=== PATIENT | female | born 1995 | race Caucasian/White ===

== ENCOUNTER 2017-12-15 10:37 | Emergency (ER) | payer MEDICAID ==
[~2017-12-15] VITALS: Ht 157.5 cm; Wt 68.7 kg
[2017-12-15 10:47] VITALS: BP 143/86
--- NOTE | 2017-12-15 10:51 | NUR ---
PATIENT PRESENT TO ED W/ C/O VAGINAL BLEED STARTED YESTERDAY WITH DARK COLOR CLOTS W/ ABDOMINAL PAIN; WAS SEEN HERE YESTERDAY FOR THE SAME S/S DX W/ MISCARRIAGE. .DENIES ANY MEDICAL HX;SKIN IS PINK/WARM/DRY; AAOX4 WITH EVEN AND STEADY GAIT; LUNGS CLEAR BL; HR EVEN AND REGULAR; PT DENIES ANY FEVER, CP, SOB, OR COUGH AT THIS TIME; PATIENT STATES PAIN OF 7/10 AT THIS TIME;PATIENT POSITIONED FOR COMFORT; HOB ELEVATED; BEDRAILS UP X2; BED DOWN. ER MD MADE AWARE OF PT STATUS.
--- NOTE | 2017-12-15 10:58 | NUR ---
PT WAS SENT BACK TO THE LOBBY;PER ERMD ORDER.
[2017-12-15 11:12] LABS: BASOPHILS % (AUTO) 0.6 % (0.0-2.0); EOSINOPHILS # (AUTO) 0.1 K/uL (0-0.4); HEMATOCRIT 36.6 % (36-48); HEMOGLOBIN 12.1 g/dL (12.0-16.0); LYMPHOCYTES # (AUTO) 2.3 K/uL (2.5-16.5); LYMPHOCYTES % (AUTO) 29.3 % (20.5-51.1); MEAN CORPUSCULAR HEMOGLOBIN 28 pg (27-31); MEAN CORPUSCULAR HGB CONC 33 g/dL (33-37); MEAN CORPUSCULAR VOLUME 84.3 fL (80-94); MONOCYTES # (AUTO) 0.6 K/uL (0.8-1.0); MONOCYTES % (AUTO) 7.5 % (1.7-9.3); NEUTROPHILS # (AUTO) 4.9 K/uL (1.8-7.7); NEUTROPHILS % (AUTO) 61.6 % (42.2-75.2); PLATELET COUNT (AUTO) 218 K/uL (140-450); RED BLOOD CELL COUNT(AUTO) 4.34 MIL/uL (4.20-5.40); RED CELL DISTRIBUTION WIDTH 13.8 % (11.6-13.7); WHITE BLOOD COUNT (AUTO) 7.9 K/uL (4.5-11.0)
--- NOTE | 2017-12-15 11:50 | NUR ---
PT AMBULATED TO BED 11 FROM THE LOBBY.
[2017-12-15 12:21] VITALS: BP 108/51
--- NOTE | 2017-12-15 12:21 | NUR ---
Patient discharged with v/s stable. Written and verbal after care instructions given and explained. Patient alert, oriented and verbalized understanding of instructions. Ambulatory with steady gait. All questions addressed prior to discharge. ID band removed. Patient advised to follow up with PMD. Rx of MOTRIN AND CIPRO given. Patient educated on indication of medication including possible reaction and side effects. Opportunity to ask questions provided and answered.
[2017-12-15 12:30] LABS: APPEARANCE,URINE HAZY (CLEAR); BILIRUBIN,URINE NEGATIVE (NEGATIVE); BLOOD, URINE 3+ (NEGATIVE); COLOR,URINE RED (YELLOW); LEUKOCYTE ESTERASE ,URINE TRACE (NEGATIVE); NITRITE, URINE POSITIVE (NEGATIVE); UGLUCOSE NEGATIVE (NEGATIVE)
[2017-12-15 12:41] LABS: RBC,URINE >20 (MANY) /HPF (0-5); WBC,URINE 0-5 (RARE) /HPF (0-5)
[2017-12-15 12:42] LABS: CALCIUM OXALATE CRYSTALS,UR 0-10 /HPF (None Seen)
== END 2017-12-15 12:21 | disposition home or self-care (01) ==
LOC: MED 10:37
DX: O03.9 Complete or unspecified spontaneous abortion without complication (principal); N39.0 Urinary tract infection, site not specified
CPT/HCPCS: 36415; 81001; 81025; 84702; 85025; 87086; 99284

== ENCOUNTER 2019-10-23 19:56 | Emergency (ER) | payer OTHER ==
[~2019-10-23] VITALS: Ht 167.6 cm; Wt 79.8 kg
[2019-10-23 20:15] VITALS: BP 130/68
--- NOTE | 2019-10-23 20:15 | NUR ---
TO BED # 03 AMBULATORY
--- NOTE | 2019-10-23 20:20 | NUR ---
PT 24 Y/O FEMALE BIB SELF FOR C/O 06/03 ABD PAIN IN LUQ AND RUQ X 1 WEEK. PT STATES PAIN RAIDATES TO MID BACK. PT STATES SHE USUALLY FEELS PAIN AFTER EATING FOOD. " I THINK I HAVE A BAD DIET I EAT APICY FOODS, AND A LOT OF GREASY FOOD." PT ALSO HAS C/O NAUSEA BUT NO V/D. ABD IS ROUND, SOFT, AND NON-TENDER. PT LAST BM WAS TODAY, "IT WAS BROWN ANS SMALL." AFEBRILE. RESPIRATIONS ARE EVEN AND UNLABORED. SKIN IS WARM AND DRY TO TOUCH. VSS. PARTNER AT BEDSIDE. MEDHX: NONE ALLERGIES: NKA
--- NOTE | 2019-10-23 20:30 | NUR ---
MELISSA GALLAGHER AT BEDSIDE.
[2019-10-23 21:20] VITALS: BP 130/68
--- NOTE | 2019-10-23 21:20 | NUR ---
Patient discharged with v/s stable. Written and verbal after care instructions given and explained. Patient alert, oriented and verbalized understanding of instructions. Ambulatory with steady gait. All questions addressed prior to discharge. ID band removed. Patient advised to follow up with PMD. Rx of ZOFRAN, OMPEPRAZOLE, MACROBID given. Patient educated on indication of medication including possible reaction and side effects. Opportunity to ask questions provided and answered.
== END 2019-10-23 21:20 | disposition home or self-care (01) ==
LOC: MED 19:56
DX: K29.70 Gastritis, unspecified, without bleeding (principal); N39.0 Urinary tract infection, site not specified
CPT/HCPCS: 81002; 81025; 99283

== ENCOUNTER 2019-10-30 12:10 | Emergency (ER) | payer OTHER ==
[~2019-10-30] VITALS: Ht 158.2 cm; Wt 75.7 kg
[2019-10-30 12:29] VITALS: BP 125/69
--- NOTE | 2019-10-30 12:36 | NUR ---
AMB TO BED 12
--- NOTE | 2019-10-30 12:47 | NUR ---
dr urena at bedside
--- NOTE | 2019-10-30 12:48 | NUR ---
pt c/o epigastric pain continuous for approx 3 weeks. pt states pain worsens after eating. pt was seen here a couple weeks ago for s/s and was sent home with prescription for omeprazole and zofran and advised to change diet as pt eats spicy foods. pt reports little relief with prescription. pt alert and awake. abdomen soft and round. vs stable. pain 8/10
[2019-10-30] MEDS ORDERED: LIDOCAINE VISCOUS 2% 20 ML UDC PO ONE (12:55)
[2019-10-30] MEDS ORDERED: ALUMINUM HYD/MAG/SIMETHICONE 30 ML UDC PO ONE (12:55)
--- NOTE | 2019-10-30 12:55 | NUR ---
PT ALSO ADDS PAIN TO LUQ, DR LINDO AT BEDSIDE WITH US
[2019-10-30 13:21] LABS: APPEARANCE,URINE HAZY (CLEAR); BILIRUBIN,URINE 1+ (NEGATIVE); BLOOD, URINE TRACE-I (NEGATIVE); COLOR,URINE DARK YELLOW (YELLOW); LEUKOCYTE ESTERASE ,URINE 1+ (NEGATIVE); NITRITE, URINE NEGATIVE (NEGATIVE); UGLUCOSE NEGATIVE (NEGATIVE)
[2019-10-30 13:24] LABS: BASOPHILS # (AUTO) 0.1 K/uL (0.00-0.22); BASOPHILS % (AUTO) 0.6 % (0.0-2.0); EOSINOPHILS % (AUTO) 0.4 % (0.0-4.0); HEMATOCRIT 42.6 % (36-48); HEMOGLOBIN 14.1 g/dL (12.0-16.0); LYMPHOCYTES # (AUTO) 1.3 K/uL (2.5-16.5); LYMPHOCYTES % (AUTO) 14.9 % (20.5-51.1); MEAN CORPUSCULAR HEMOGLOBIN 28 pg (27-31); MEAN CORPUSCULAR HGB CONC 33 g/dL (33-37); MEAN CORPUSCULAR VOLUME 84.7 fL (80-94); MONOCYTES # (AUTO) 0.5 K/uL (0.8-1.0); MONOCYTES % (AUTO) 6.1 % (1.7-9.3); NEUTROPHILS # (AUTO) 6.7 K/uL (1.8-7.7); PLATELET COUNT (AUTO) 247 K/uL (140-450); RED BLOOD CELL COUNT(AUTO) 5.03 MIL/uL (4.20-5.40); RED CELL DISTRIBUTION WIDTH 13.2 % (11.6-13.7); WHITE BLOOD COUNT (AUTO) 8.6 K/uL (4.8-10.8)
--- NOTE | 2019-10-30 13:30 | NUR ---
ULTRASOUND AT BEDSIDE
[2019-10-30 13:32] LABS: ANION GAP 11.6 (8-16); CARBON DIOXIDE 28.6 mmol/L (21-32); CREATININE 0.8 mg/dL (0.6-1.3); POTASSIUM 4.2 mmol/L (3.5-5.1)
[2019-10-30 13:38] LABS: ALBUMIN 4.1 g/dL (3.4-5.0); TOTAL BILIRUBIN 0.7 mg/dL (0.0-1.0)
[2019-10-30 13:41] LABS: WBC,URINE 60-80 /HPF (0-5)
--- NOTE | 2019-10-30 14:11 | NUR ---
REPORTS 5/10 PAIN.
[2019-10-30] MEDS ORDERED: KETOROLAC 30 MG/ML VIAL IM ONE (15:10)
--- NOTE | 2019-10-30 15:45 | NUR ---
Patient discharged with v/s stable. Written and verbal after care instructions given and explained. patient educated on dietary choices and to take OTC medication for pain or discomfort. Patient verbalized understanding. Ambulatory with steady gait. All questions addressed prior to discharge. Advised to follow up with PMD.
[2019-10-30 15:48] VITALS: BP 125/75
--- NOTE | 2019-10-30 15:53 | NUR ---
Patient requested for doctor's note for work excuse. Dr. Weathers notified.
== END 2019-10-30 15:53 | disposition home or self-care (01) ==
LOC: MED 12:10
DX: K80.70 Calculus of gallbladder and bile duct without cholecystitis without obstruction (principal); F12.90 Cannabis use, unspecified, uncomplicated
CPT/HCPCS: 36415; 76705; 80053; 81001; 83690; 84703; 85025; 87086; 96372; 99284; J1885; Q0092